=== PATIENT | male | born 1980 | race Hispanic/Latino ===

== ENCOUNTER 2023-10-23 08:15 | Day surgery (SDC) | payer OTHER ==
[2023-10-23] MEDS: Ringers Lactate 1,000 ML IV ONE (08:40)
[2023-10-23] MEDS ORDERED: LIDOCAINE 1% MPF 5 ML VIAL ONE (11:18)
[2023-10-23] MEDS ORDERED: propofoL 200 MG/20 ML VIAL IV ONE (11:18)
[2023-10-23 12:25] VITALS: O2SAT 100
[2023-10-23 12:26] VITALS: BP 127/90; TEMP 97.9
--- NOTE | 2023-10-23 16:54 | EKG ---
Test Date: 2023-10-23 Test Time: 08:10:06 Warehouse Receiving Clerk: KATIE MEASUREMENT RESULTS: Intervals: Rate: 68 MD: 182 QRSD: 86 QT: 394 QTc: 418 Ducor: P: 51 MD: 182 QRS: 70 T: 68 INTERPRETIVE STATEMENTS: Normal sinus rhythm Normal ECG No previous ECG available for comparison Electronically Signed On 10-23-23 16:53:29 CDT by Aram Montemayor
== END 2023-10-23 12:20 | disposition home or self-care (01) ==
LOC: OR 08:15
PROVIDERS: ATTEND Internal Medicine Gastroenterology
PROC: 0DB68ZX Excision of Stomach, Via Natural or Artificial Opening Endoscopic, Diagnostic (ICD-10-PCS; principal; 2023-10-23 09:30)
DX: R10.33 Periumbilical pain (principal); R14.0 Abdominal distension (gaseous); K30 Functional dyspepsia; R14.2 Eructation; K21.9 Gastro-esophageal reflux disease without esophagitis; K21.00 Gastro-esophageal reflux disease with esophagitis, without bleeding; K44.9 Diaphragmatic hernia without obstruction or gangrene; K22.10 Ulcer of esophagus without bleeding; K29.50 Unspecified chronic gastritis without bleeding
CPT/HCPCS: 93005; 80048; 36415; 88312; 88305; 43239; J2704; J2001; J7120